=== PATIENT | male | born 1980 | race Caucasian/White ===

== ENCOUNTER 2017-05-28 16:24 | Emergency (ER) | payer MEDICAID, OTHER ==
[~2017-05-28] VITALS: Ht 175.3 cm; Wt 86.2 kg
[2017-05-28 16:39] VITALS: BP_SYST 140
--- NOTE | 2017-05-28 19:15 | NUR ---
Patient to ER bed 5 to gown for evaluation. Side rails up. Report given to ADAN TAFOYA.
--- NOTE | 2017-05-28 19:30 | NUR ---
Patient AOx4, ambulatory, presents to ER with complaint of left knee pain 11/30. Patient states that the pain came after an injury involving a dog. No other symptoms or complaints at this time.
--- NOTE | 2017-05-28 19:38 | NUR ---
PHOENIX Denis at bedside for medical evaluation.
[2017-05-28] MEDS ORDERED: HYDROcodone/ACETAMIN 7.5-325 MG TAB PO ONE (19:45)
--- NOTE | 2017-05-28 20:05 | NUR ---
No adverse reactions noted after medication administration. Will continue to monitor.
[2017-05-28 20:07] VITALS: BP_SYST 132
--- NOTE | 2017-05-28 20:07 | NUR ---
Patient given written and verbal discharge instructions and verbalizes understanding. ER MD discussed with patient the results and treatment provided. Patient in stable condition. ID arm band removed. Rx of Motrin and [place] given. Patient educated on pain management and to follow up with PMD. Pain Scale 0/10. Opportunity for questions provided and answered.
== END 2017-05-28 20:07 | disposition home or self-care (01) ==
LOC: SED 16:24
DX: S89.82XA Other specified injuries of left lower leg, initial encounter (principal); R03.0 Elevated blood-pressure reading, without diagnosis of hypertension; Z88.0 Allergy status to penicillin; W01.0XXA Fall on same level from slipping, tripping and stumbling without subsequent striking against object, initial encounter; Y93.89 Activity, other specified; Y92.89 Other specified places as the place of occurrence of the external cause; Y99.8 Other external cause status
CPT/HCPCS: 73564; 99284

== ENCOUNTER 2020-06-12 18:00 | Emergency (ER) | payer OTHER, SELFPAY ==
[~2020-06-12] VITALS: Ht 172.7 cm; Wt 95.3 kg
[2020-06-12 18:07] VITALS: BP_SYST 146
[2020-06-12] MEDS ORDERED: KETOROLAC TROMETHAMINE 60 MG/2 ML VIAL IM ONE (18:30)
[2020-06-12] MEDS ORDERED: IBUP-1971 PO (19:59)
[2020-06-12 20:10] VITALS: BP_SYST 146
== END 2020-06-12 20:10 | disposition home or self-care (01) ==
LOC: SED 18:00
DX: R51.9 Headache, unspecified (principal); F41.9 Anxiety disorder, unspecified; Z88.0 Allergy status to penicillin
CPT/HCPCS: 70450-TC; 76376; 93005; 96372; 99284